=== PATIENT | female | born 1940 | race Caucasian/White ===

== ENCOUNTER 2019-12-27 17:48 | Inpatient (IN) | payer OTHER ==
[~2019-12-27] VITALS: Ht 167.6 cm; Wt 56.2 kg
[2019-12-27 17:49] VITALS: BP 17/88
[2019-12-27] MEDS ORDERED: CARVEDILOL12.5 MG PO (18:51)
[2019-12-27] MEDS ORDERED: COZAAR 25 MG TA25 M1 PO (18:53)
[2019-12-27] MEDS ORDERED: AMITRIPTYLINE H10 M3 PO (18:54)
[2019-12-27] MEDS ORDERED: FLEXERIL PO (18:54)
[2019-12-27] MEDS ORDERED: PERCOCET 5-3251 EACH PO (18:55)
[2019-12-27] MEDS ORDERED: MORPHINE SULFAT30 M4 PO (18:58)
[2019-12-27 20:52] VITALS: BP 154/50
[2019-12-27 21:48] LABS: ABSOLUTE NEUTROPHILS 10.5 thou/uL (1.4-8.2); BASOPHILS 0.2 % (0.0-2.0); EOSINOPHILS 0.4 % (0.0-3.0); HEMATOCRIT 38.6 % (37.0-47.0); HEMOGLOBIN 12.6 gm/dL (12.0-15.0); LYMPHOCYTES 10.4 % (24.0-44.0); MCH 31.2 pg (26.0-34.0); MCHC 32.5 g/dL (28.0-37.0); MCV 95.9 fL (80.0-100.0); MONOCYTES 6.1 % (1.0-8.0); PLATELET COUNT 257 thou/uL (150-400); POLYS 82.9 % (36.0-66.0); RBC 4.03 mil/uL (4.20-5.00); RDW 12.8 % (10.5-14.5); WBC 12.6 thou/uL (4.0-11.0)
[2019-12-27 21:51] LABS: CALCIUM 9.1 mg/dL (8.5-10.1); CREATININE 0.8 mg/dL (0.6-1.0); POTASSIUM 3.5 mmol/L (3.5-5.1)
[2019-12-27 22:08] LABS: INR 1.1; PROTIME 10.9 Seconds (9.3-11.4)
[2019-12-27 22:17] VITALS: BP 158/86
[2019-12-27 22:30] VITALS: BP 155/81
[2019-12-28 03:30] VITALS: BP 114/56
[2019-12-28 05:15] LABS: HEMATOCRIT 36.4 % (37.0-47.0); MCH 31.7 pg (26.0-34.0); MCV 96.3 fL (80.0-100.0); RBC 3.78 mil/uL (4.20-5.00); RDW 12.6 % (10.5-14.5); WBC 10.8 thou/uL (4.0-11.0)
[2019-12-28 05:54] LABS: CALCIUM 9.3 mg/dL (8.5-10.1); CREATININE 0.9 mg/dL (0.6-1.0)
[2019-12-28 08:19] VITALS: BP 121/54
--- NOTE | 2019-12-28 08:53 | EKG ---
[facility] [place] [address] ELECTROCARDIOGRAM REPORT Name: EULALIAMIQUEL Mohamud Room #: 437-P ADM IN M.R.#: [id number] Admission: 12/27/19 Attend Phys: Oleg Franco MD Discharge: Date of : 44 Report #: [id number] THIS REPORT FOR: cc: Jamey Mejía MD, Charles W. MD Couchonnal,Thaddeus Corrigan MD ~ THIS REPORT FOR: //name// [facility] ED Test Date: 2019-12-27 Test Time: 19:25:46 Pat Name: MIQUEL ESTEBAN Department: Room: [facility] Gender: F Spool Sander: JERRY : 1940 Requested By: Michelle Serrato Order Number: [id number] MD: Thaddeus Kauffman Measurements Intervals [place] Rate: 84 P: 64 NE: 168 QRS: 68 QRSD: 117 T: 23 QT: 397 QTc: 470 Interpretive Statements Sinus rhythm Sinus pause Incomplete right bundle branch block Compared to ECG 04/08/2008 06:48:15 Electronically Signed On 12-28-2019 8:52:33 SMT MACHINE OPERATOR by Thaddeus Kauffman [email or web address] <ELECTRONICALLY SIGNED> By: Thaddeus Kauffman MD 12/28/19 0852 24 24 Thaddeus Kauffman MD /EPI
[2019-12-28 17:15] VITALS: BP 133/60
[2019-12-28 21:54] VITALS: BP 152/75
[2019-12-29 03:40] VITALS: BP 113/50
[2019-12-29 07:50] VITALS: BP 114/48
[2019-12-29 15:35] VITALS: BP 126/67
[2019-12-29 20:03] VITALS: BP 114/61
[2019-12-30 09:00] VITALS: BP 119/65
[2019-12-30 10:44] VITALS: BP 119/65
== END 2019-12-30 17:26 | disposition home or self-care (01) | DRG 536 ==
LOC: ER 17:48 → 4S 19:16 → EROBS 19:16 → 4S 22:16 → 4N 12-29 12:02
PROVIDERS: Nurse Practitioner Family; ADMIT Internal Medicine
DX: S72.111A Displaced fracture of greater trochanter of right femur, initial encounter for closed fracture (principal); Z96.653 Presence of artificial knee joint, bilateral; I10 Essential (primary) hypertension; G89.4 Chronic pain syndrome; R53.81 Other malaise; W18.39XA Other fall on same level, initial encounter; Z87.11 Personal history of peptic ulcer disease; Z90.710 Acquired absence of both cervix and uterus; Z98.42 Cataract extraction status, left eye; Z79.899 Other long term (current) drug therapy; Z88.1 Allergy status to other antibiotic agents; Z88.0 Allergy status to penicillin; Y93.89 Activity, other specified; Y92.89 Other specified places as the place of occurrence of the external cause; Y99.8 Other external cause status
CPT/HCPCS: 10091; 10195